=== PATIENT | male | born 1935 | race Caucasian/White ===

== ENCOUNTER 2016-12-10 14:37 | Emergency (ER) | payer OTHER ==
[~2016-12-10] VITALS: Ht 172.7 cm; Wt 81.8 kg
[2016-12-10] MEDS ORDERED: [UNRECOGNIZED DRUG - CODE] PO (15:12)
[2016-12-10] MEDS ORDERED: DUTA1CAP PO (15:12)
[2016-12-10] MEDS ORDERED: UBIQ100C3 PO (15:12)
[2016-12-10] MEDS ORDERED: ATOR40TA75 PO (15:12)
[2016-12-10] MEDS ORDERED: VITA2000 PO (15:12)
[2016-12-10] MEDS ORDERED: ASPI1TAB PO (15:12)
[2016-12-10] MEDS ORDERED: IRBE150T12 PO (15:12)
[2016-12-10] MEDS ORDERED: METO1TAB7 PO (15:12)
[2016-12-10] MEDS ORDERED: PRAD150C PO (15:12)
[2016-12-10] MEDS ORDERED: TOLT1CAP PO (15:12)
[2016-12-10 15:42] LABS: BASO % 0.5 % (0.0-1.0); EOS # 0.2 K/mm3 (0.0-0.50); EOS % 2.7 % (0.0-3.0); LARGE UNSTAINED CELL # 0.1 K/mm3 (0.0-0.4); LARGE UNSTAINED CELL % 1.3 % (0.0-4.0); LYMPH # 1.4 K/mm3 (1.5-4.5); LYMPH % 13.5 % (24.0-44.0); MEAN CORPUSCULAR HEMOGLOBIN 29.4 pg (27.0-33.0); MEAN CORPUSCULAR HGB CONC 32.8 g/dl (32.0-36.5); MEAN CORPUSCULAR VOLUME 89.5 fl (80.0-96.0); MONO # 0.5 K/mm3 (0.0-0.8); MONO % 5.8 % (0.0-5.0); NEUTROPHILS # 7.1 K/mm3 (1.8-7.7); NEUTROPHILS % 76.3 % (36.0-66.0); PLATELET COUNT, AUTOMATED 263 k/mm3 (150-450); RED CELL DISTRIBUTION WIDTH 13.6 % (11.5-14.5); WHITE BLOOD COUNT 9.3 K/mm3 (4.0-10.0)
[2016-12-10 16:06] LABS: ALBUMIN 3.9 GM/DL (3.2-5.2); ALBUMIN/GLOBULIN RATIO 1.22 (1.00-1.93); ALKALINE PHOSPHATASE 79 U/L (45-117); ALT/SGPT 34 U/L (12-78); ANION GAP 10 MEQ/L (8-16); AST/SGOT 22 U/L (15-37); BILIRUBIN,DIRECT < 0.1 MG/DL (0.0-0.2); BILIRUBIN,TOTAL 0.4 MG/DL (0.2-1.0); BLOOD UREA NITROGEN 14 MG/DL (7-18); CALCIUM LEVEL 9.1 MG/DL (8.8-10.2); CARBON DIOXIDE LEVEL 28 MEQ/L (21-32); CHLORIDE LEVEL 102 MEQ/L (98-107); CREATININE FOR GFR 0.91 MG/DL (0.70-1.30); GLOMERULAR FILTRATION RATE > 60.0 (>35); GLUCOSE, FASTING 110 MG/DL (83-110); POTASSIUM SERUM 3.7 MEQ/L (3.5-5.1); SODIUM LEVEL 140 MEQ/L (136-145); TOTAL PROTEIN 7.1 GM/DL (6.4-8.2)
--- NOTE | 2016-12-10 17:23 | REP ---
CT BRAIN WITHOUT CONTRAST: 12/10/2016: Clinical history: 81-year-old male with near-syncope. No prior study. Findings: The noncontrast soft tissue and bone window settings are reviewed for each slice level. The lateral ventricles are midline, symmetric, dilated but without displacement. Their dilatation is proportionate to the moderately severe diffuse atrophy. Basal ganglia are symmetric. There is heterogeneous low attenuation white matter change in the periventricular deep central and subcortical white matter in each hemisphere representing chronic small vessel white matter ischemic change. Cortical stripe shows diffuse atrophy, most severe in the temporal and frontal lobes but present throughout. No vascular territory infarct, hemorrhage, mass, mass effect or edema. No extra-axial fluid collection. There are a few parasagittal vertex dural calcifications present. There is no intracranial hemorrhage. Brainstem unremarkable. Cerebellum shows some mild atrophy without mass or bleed in the posterior fossa. Basal cisterns are intact. Mastoids symmetric and unremarkable. There are heavy atherosclerotic calcifications in the carotid siphons. Visualized sinuses intact. The calvarium and skull base are without fracture or focal lesion. Impression: 1. Moderately severe diffuse atrophy and proportionate ventriculomegaly without midline shift or mass. 2. Chronic small vessel white matter ischemic change in both hemispheres. No acute infarct, hemorrhage, mass, mass effect or edema. 3. Brainstem unremarkable in the posterior fossa with cerebellar atrophy but no mass or hemorrhage. 4. Skull base, calvarium, sinuses and mastoids intact. Heavy vascular calcifications in the carotid siphons. Signed by Bhupinder Seth MD 12/13/2016 07:48 A
--- NOTE | 2016-12-10 17:33 | REP ---
PORTABLE CHEST: AP portable view of the chest is performed. There are no prior studies for comparison. There is cardiomegaly and pulmonary venous hypertension. No infiltrates are seen. There is calcification and ectasis of the thoracic aorta. Multiple sternal wires are present. IMPRESSION: Cardiomegaly and pulmonary venous hypertension. No infiltrate. Signed by Jimmie Thomas MD 12/21/2016 08:37 A
[2016-12-10 17:34] VITALS: BP 151/72
--- NOTE | 2016-12-12 02:16 | ECGEPIP ---
Stationary ECG Study [facility] - ED Test Date: 2016-12-10 Pat Name: NAYLA MIJARES Department: Room: - Gender: M [employer] Manager: marty : [id number] Requested By: Soham Zuñiga Order Number: [id number] Reading MD: Soham Blood Measurements Intervals [place] Rate: 64 P: 15 MA: 219 QRS: 33 QRSD: 106 T: 76 QT: 426 QTc: 441 Interpretive Statements SINUS RHYTHM WITH MARKED SINUS ARRHYTHMIA WITH FIRST DEGREE AV BLOCK POSSIBLE LEFT ATRIAL ENLARGEMENT INCOMPLETE RIGHT BUNDLE BRANCH BLOCK NONSPECIFIC ST & T-WAVE ABNORMALITY NO PRIORS Electronically Signed On 12-12-2016 2:16:35 EDT by Soham Blood
== END 2016-12-10 17:36 | disposition home or self-care (01) ==
LOC: EDBD 14:37 → M ED 14:37
DX: R53.1 Weakness (principal); Z95.1 Presence of aortocoronary bypass graft; R94.31 Abnormal electrocardiogram [ECG] [EKG]; Z79.82 Long term (current) use of aspirin; Z79.899 Other long term (current) drug therapy